=== PATIENT | male | born 1965 ===

== ENCOUNTER 2025-05-20 14:17 | Emergency (ER) | payer OTHER, SELFPAY ==
[2025-05-20 14:35] VITALS: BP 119/65; PULSE 74; RESP 18; TEMP 36.6; O2SAT 99; BMI 20.7
--- NOTE | 2025-05-20 14:39 | DI.RAD.S_ITS ---
PROCEDURE: XR ELBOW LT MIN 3V INDICATIONS: fall off ladder TECHNIQUE: 3 views of the elbow were acquired. COMPARISON: None. FINDINGS: Bones: Medial humerus condylar fracture, with articular extension. Soft tissues: Moderate elbow joint effusion. No suspicious soft tissue calcifications. IMPRESSION: Intra-articular fracture of the medial humeral condyle. Dictated by: Bennie Yepez M.D. on 05/20/2025 at 15:09 Approved by: Bennie Yepez M.D. on 05/20/2025 at 15:09
--- NOTE | 2025-05-20 15:32 | ED.UPPEXIN ---
HPI - Extremity Injury (Upper) General Chief Complaint: Extremity Injury, Upper Stated Complaint: left arm injury Time Seen by Provider: 05/20/25 14:27 Source: patient Mode of arrival: Ambulatory History of Present Illness HPI narrative: 60-year-old gentleman visiting the area is up on the ladder 3 4 ft when he fell directly on his left elbow and unable to move it at this time. He denies loss of conscious, headache, neck pain, chest pain, back pain, abdominal pain, numbness, tingling, down, the arms or legs or difficulty ambulating. He did not take anything for the pain prior to arrival. Other than what is stated 14 point review of system is negative. Related Data Previous Rx's ?Medication ?Instructions ?Recorded hydrocodone 5 mg-acetaminophen 325 1 tab PO Q4-6H PRN pain #20 tabs 05/20/25 mg tablet Allergies Allergy/AdvReac Type Severity Reaction Status Date / Time No Known Allergies Allergy Verified 05/20/25 14:39 Review of Systems Review of Systems ROS Unobtainable: All systems reviewed & are unremarkable except as noted in HPI and below Patient History Smoking Status: Never smoker Exam Narrative Exam Narrative: GENERAL: [60] year old patient appears stated age. Well-developed patient, in mild distress. HEAD: Atraumatic. Normocephalic. EYES: Pupils equal round and reactive. Extraocular motions intact. No scleral icterus. No injection or drainage. NECK: Trachea midline. Non tender CARDIOVASCULAR: Regular rate and rhythm without murmurs, gallops, or rubs. RESPIRATORY: Clear to auscultation. Breath sounds equal bilaterally. No wheezes, rales, or rhonchi. EXTREMITIES: Left elbow palpate with no obvious deformity but swelling and tenderness to palpation motor sensory intact +2 radial pulse cap refill less than 2 seconds BACK: Nontender without deformity or crepitance. No flank tenderness. NEURO: AOx3. SKIN: No rash or erythema of visible areas Initial Vital Signs Initial Vital Signs: Vital Signs Temperature 97.9 F 05/20/25 14:35 Pulse Rate 74 05/20/25 14:35 Respiratory Rate 18 05/20/25 14:35 Blood Pressure 119/65 05/20/25 14:35 Pulse Oximetry 99 05/20/25 14:35 Oxygen Delivery Method Room Air 05/20/25 14:35 Course Orders Ordered: ED Orders 05/20/25 14:39 XR elbow LT min 3V Stat Vital Signs Vital signs: Vital Signs - 8 hr 05/20/25 14:35 Temperature 97.9 F Pulse Rate 74 Respiratory Rate 18 Blood Pressure 119/65 Pulse Oximetry 99 Oxygen Delivery Method Room Air MDM - Extremity Injury (Upper) Imaging Data Extremity x-ray #1: Radiologist's Impression: [address] [address] XRay Report Signed Patient: Zohaib Cabrera MR#: [id number] : 1965 Acct:[id number] Age/Sex: 60 / M Date of Service: 05/20/25 Loc: ED Accession Number: [id number] Procedure: XR elbow LT min 3V Ordering Provider: Zohaib Cespedes D.O. PROCEDURE: XR ELBOW LT MIN 3V INDICATIONS: fall off ladder TECHNIQUE: 3 views of the elbow were acquired. COMPARISON: None. FINDINGS: Bones: Medial humerus condylar fracture, with articular extension. Soft tissues: Moderate elbow joint effusion. No suspicious soft tissue calcifications. IMPRESSION: Intra-articular fracture of the medial humeral condyle. [facility] Narrative Medical decision making narrative: Vital signs, nurse triage note, medication list, previous ER visits, and all imaging studies reviewed. Intra-articular fracture of the medial humeral condyle. Splint placed ibuprofen [place] given. DC home on [place] and to follow up with orthopedic surgeon in [place]. Differential diagnosis fracture dislocation contusion abrasion. Discharge Plan Departure Patient Disposition: Home Clinical Impression: Closed fracture of condyle of humerus Instructions: DI for Elbow Fracture Activity Restrictions/Additional Instructions: Return with new or worsening symptoms. Take your medicines as directed. Follow up with orthopedic doctor in [place]. Prescriptions: New hydrocodone-acetaminophen 5-325 mg tablet 1 tab PO Q4-6H PRN (Reason: pain) Qty: 20 0RF Stand Alone Forms: Patient Portal/API
[2025-05-20] MEDS: IBUPROFEN 400 MG TABLET 800 MG PO (15:49)
[2025-05-20] MEDS: HYDROCODONE/ACET 5/325 TABLET 1 TAB PO (15:50)
[2025-05-20 16:09] VITALS: BP 135/78; PULSE 66; RESP 19; O2SAT 99
== END 2025-05-20 16:10 | disposition home or self-care (01) ==
PROVIDERS: Emergency Provider Family Medicine
DX: S42.462A Displaced fracture of medial condyle of left humerus, initial encounter for closed fracture (principal); W11.XXXA Fall on and from ladder, initial encounter
CPT/HCPCS: 73080; 99283